=== PATIENT | male | born 1955 | race African-American/Black ===

== ENCOUNTER 2017-10-05 15:41 | Emergency (ER) | payer MEDICARE, MEDICAID ==
[~2017-10-05] VITALS: Ht 188 cm; Wt 105.0 kg
[2017-10-05 17:40] VITALS: BP 129/97
== END 2017-10-05 19:13 | disposition home or self-care (01) ==
LOC: ER 18:06
DX: S60.453A Superficial foreign body of left middle finger, initial encounter (principal); L03.012 Cellulitis of left finger; I10 Essential (primary) hypertension; W45.8XXA Other foreign body or object entering through skin, initial encounter; Y93.89 Activity, other specified; Y92.018 Other place in single-family (private) house as the place of occurrence of the external cause
CPT/HCPCS: 99284